=== PATIENT | female | born 1995 | race Caucasian/White ===

== ENCOUNTER 2018-12-03 21:49 | Inpatient (IN) | payer BC, OTHER ==
[2018-12-03 22:21] LABS: #Eosinphils 0.3 thou/uL (0.0-0.7); #Lymphocytes 4.9 thou/uL (1.20-3.40); #Monocytes 0.9 thou/uL (0.11-0.59); #Neutrophils 6.3 thou/uL (1.40-6.50); %Basophils 0.4 % (0.0-1.0); %Eosinophils 2.3 % (0.0-10.0); %Lymphocytes 39.6 % (21.0-51.0); %Neutrophils 50.8 % (42.0-75.0); Hemoglobin 13.3 g/dL (12.0-16.0); Mean Corpuscular HGB CONC 32.7 g/dL (32.0-36.0); Mean Corpuscular Hemoglobin 26.7 pg (27.0-31.0); Mean Corpuscular Volume 81.6 fL (78.0-98.0); Mean Platelet Volume 7.2 fL (7.4-10.4); Platelet Count 382 thou/uL (130-400); Red Blood Cell (RBC) Count 4.99 mill/uL (4.20-5.40); White Blood Cell (WBC) Count 12.4 thou/uL (4.8-10.8)
[2018-12-03 22:28] LABS: INR-International Normal Ratio 1.1; PTT 33.4 SEC (22.9-36.1); Prothrombin Time 13.9 SEC (12.0-14.7)
[2018-12-03] MEDS ORDERED: Morphine 4 MG/ML VIAL ONE ×2 (22:38→23:59)
[2018-12-03] MEDS ORDERED: diphenhydrAMINE 50 MG/ML VIAL ONE (22:39)
[2018-12-03] MEDS ORDERED: Ondansetron PF 4 MG/2 ML Vial ONE (22:39)
[2018-12-03 22:41] LABS: ALT (SGPT) 28 U/L (8-55); AST (SGOT) 19 U/L (5-34); Albumin 4.4 g/dL (3.5-5.0); Alkaline Phosphatase 79 U/L (40-150); Anion Gap 16 mmol/L (10-20); BUN (Urea Nitrogen) 9 mg/dL (7.0-18.7); Bilirubin, Total 0.3 mg/dL (0.2-1.2); Calc. Creatinine Clearance 0 mL/min (70-130); Calcium 10.1 mg/dL (7.8-10.44); Carbon Dioxide 21 mmol/L (22-29); Chloride 107 mmol/L (98-107); Estimated GFR-MDRD Greater than 90; Globulin 3.3 g/dL (2.4-3.5); Glucose 87 mg/dL (70-105); Potassium 3.9 mmol/L (3.5-5.1); Protein, Total 7.7 g/dL (6.0-8.3); Sodium 140 mmol/L (136-145)
[2018-12-03] MEDS ORDERED: Adacel (T-DAP) 0.5 ML SYRINGE ONE (23:59)
[2018-12-04 00:39] LABS: Bilirubin Negative (Negative); Blood, Urine Negative (Negative); Clarity CLEAR (Clear); Glucose, Urine (Dipstick) Negative (Negative); Leukocyte Negative (Negative); Nitrite Negative (Negative); Protein, Urine (Dipstick) Negative (Neg-Trace); Specific Gravity, Urine 1.011 (1.002-1.036); Urobilinogen 0.2 mg/dL (0.2-1.0)
[2018-12-04 00:51] LABS: Pregnancy Test - Urine (BHCG) Negative (Negative); Pregu Control Background? CLEAR/WHITE (CLR/WHITE); Pregu Control Bar Appear? YES (CONTROL BAR); Specific Gravity 1.011 (1.002-1.036)
[2018-12-04] MEDS ORDERED: Ondansetron PF 4 MG/2 ML Vial ONE (02:40)
[2018-12-04] MEDS ORDERED: Crotalidae Polyvlnt Antivenin 4 GM in Sodium Chloride 0.9% 250 ML 250 ML IVPB SCH (02:45)
--- NOTE | 2018-12-04 03:24 | PDOC.FPRHP ---
- History of Present Illness Chief Complaint: snake bite History of Present Illness: 23 yo F presents for snake bite that happened around 9:15 PM. Patient reports she was in her yard with her dog, thought she stepped on a chain, and when she stepped off she felt the snake bite her but did not see it. She went inside and told her , and he brought her to the ED. She reports her has seen multiple copper heads at her house. She currently has RLE pain, swelling. Reports some nausea but has not vomited. In ED, margins were marked. Initially the bite was thought to be dry, but then the margins started spreading and crofab protocol was intiated. - Allergies/Adverse Reactions Allergies Allergy/AdvReac Type Severity Reaction Status Date / Time No Known Drug Allergies Allergy Verified 12/04/18 05:53 - Home Medications Medication Instructions Recorded Confirmed Type Desog-E.Estradiol/E.Estradiol 1 tab PO DAILY 12/04/18 12/04/18 History [Kariva 28 Day Tablet] - History PMHx: environmental allergies PSHx: tympanostomy tubes, tonsillectomy FHx: no heart disease, lung cancer in mGF Social: no t/a/d - Review of Systems General: denies: fever/chills, weight/appetite/sleep changes Eyes: denies: eye pain, vision changes ENT: denies: nasal congestion, rhinorrhea Respiratory: denies: cough, congestion, shortness of breath Cardiovascular: denies: chest pain, palpitation Gastrointestinal: reports: nausea. denies: vomiting, diarrhea, constipation, abdominal pain, GI bleeding Skin: reports: rashes (see HPI). denies: lesions Musculoskeletal: reports: pain, tenderness, swelling Neurological: reports: numbness (on RLE). denies: syncope, seizure, weakness Psychological: denies: anxiety, depression - Vital signs BP: 94/63 HR: 64 RR: 18 Tmax: 98.8 Pox: 100% on RA Wt: 113 kg - Physical Exam Constitutional: NAD, awake, alert and oriented HEENT: normocephalic and atraumatic, PERRLA, EOMI, conjunctiva clear, grossly normal hearing, MMM, oropharynx clear Neck: supple, trachea midline, no LAD Heart: RRR, normal S1/S2, no murmurs/rubs/gallops, pulses present, other (+ edema on RLE) Lungs: CTAB, no respiratory distress, good air movement, no rales/rhonchi, no wheezing Abdomen: soft, non-tender, bowel sounds present, no masses/distention Musculoskeletal: normal structure, normal tone Neurological: no focal deficit Skin: good turgor, capillary refill <2 seconds, other (swelling, erythema, warmth and tenderness over RLE. Margins marked. Two small benson over anterior ankle.) Heme/Lymphatic: no unusual bruising or bleeding, no petechia Psychiatric: normal mood and affect, good judgment and insight, intact recent and remote memory FMR H&P: Results - Labs Result Diagrams: 12/04/18 06:22 12/03/18 22:11 Lab results: WBC 12.4 thou/uL (4.8-10.8) H 12/03/18 22:11 Hgb 13.3 g/dL (12.0-16.0) 12/03/18 22:11 Hct 40.7 % (36.0-47.0) 12/03/18 22:11 MCV 81.6 fL (78.0-98.0) 12/03/18 22:11 Plt Count 382 thou/uL (130-400) 12/03/18 22:11 Neutrophils % 50.8 % (42.0-75.0) 12/03/18 22:11 Sodium 140 mmol/L (136-145) 12/03/18 22:11 Potassium 3.9 mmol/L (3.5-5.1) 12/03/18 22:11 Chloride 107 mmol/L (98-107) 12/03/18 22:11 Carbon Dioxide 21 mmol/L (22-29) L 12/03/18 22:11 BUN 9 mg/dL (7.0-18.7) 12/03/18 22:11 Creatinine 0.78 mg/dL (0.6-1.1) 12/03/18 22:11 Glucose 87 mg/dL (70-105) 12/03/18 22:11 Calcium 10.1 mg/dL (7.8-10.44) 12/03/18 22:11 Total Bilirubin 0.3 mg/dL (0.2-1.2) 12/03/18 22:11 AST 19 U/L (5-34) 12/03/18 22:11 ALT 28 U/L (8-55) 12/03/18 22:11 Alkaline Phosphatase 79 U/L (40-150) 12/03/18 22:11 Creatine Kinase 123 U/L (29-168) 12/03/18 22:31 Serum Total Protein 7.7 g/dL (6.0-8.3) 12/03/18 22:11 Albumin 4.4 g/dL (3.5-5.0) 12/03/18 22:11 Urine Ketones Negative mg/dL (Negative) 12/04/18 00:25 Urine Blood Negative (Negative) 12/04/18 00:25 Urine Nitrite Negative (Negative) 12/04/18 00:25 Ur Leukocyte Esterase Negative (Negative) 12/04/18 00:25 FMR H&P: A/P - Problem List (1) Snake bite Current Visit: Yes Status: Acute Code(s): W59.11XA - BITTEN BY NONVENOMOUS SNAKE, INITIAL ENCOUNTER - Plan Snake bite, likely Copper Head -Swelling, erythema, induration, tenderness over RLE; margins marked and increasing. -UA neg, UPT neg -CK, fibrinogen, CBC, CMP, PT/PTT/INR -Battery Plate Assembler brendan initiated, Repeat PT/PTT/INR, Plt, Fibrinogen 1 hr after infusion complete. -Margins unchanged 1 hr after infusion complete. Labs stable -Start maintenance crofrab -CK 123 -zofran for nausea -benadryl for itching -NS @ 150 ml/hr PCP: none, CC Code: Full Diet: Regular GI: famotidine DVT ppx: none FMR H&P: Upper Level - Pertinent history 23 yr old female with no PMH presents after snake bite around 2114 on 12/03 in her yard while letting the dogs out. Did not actually see the snake but thought may be copperhead bc they have seem some. She has had worsening of swelling and pain and was ultimately started on crofab in ER. Reports throbbing pain and hurts worse when trying to walk. - Pertinent findings General: NAD, alert and oriented x3 Neck: Supple. Full ROM. Heart/Cardiovascular System: RRR, Cap refill < 3 seconds, no rub, no murmur Lungs/Respiratory System: clear to auscultation bilaterally. No increased work of breathing. Room air. Abdomen/Gastro-Intestinal System: no abdominal tenderness, normal bowel sounds, no masses, no organomegaly Extremities: Warm extremities. Right lateral foot/ankle with swelling and bruising like appearance with hourly markings indicating progression. 2 pinpoint penetration site distal to right lateral ankle. Neuro: No gross deficits appreciated. CN 2-12 grossly intact Psychiatry: Awake, Alert and cooperative with exam Skin: No lesions, rashes, or ulcers Musculoskeletal: Full ROM - Plan Date/Time: 12/04/18 2874 I, [Fidelia Guajardo], have evaluated this patient and agree with findings/plan as outlined by procurement internship resident. Pertinent changes/additions are listed here. venemous snake bite -patient on snake bite protocol. -initial labs with elevated fibrinogen -monitor CBC, PT/PTT, fibrinogen 1 hr following initial crofab. -if controlled, start maintenance crofab. -pain control with morphine -no NSAIDs or anticoagulation Addendum - Attending - Attending Attestation Date/Time: 12/04/18 1029 I personally evaluated the patient and discussed the management with Dr. Annalisa Coyne I agree with the History, Examination, Assessment and Plan documented above with any addition or exceptions noted below. The patient was bitten by an unknown type of snake last night. She has started the snake bite protocol as her fibrinogen elevated. She has significant swelling and pain in the right ankle and foot. Pulses are palpable and she is able to move her toes though it is painful. Will continue giving crofab.
[2018-12-04] MEDS ORDERED: diphenhydrAMINE 50 MG/ML VIAL IVP PRN (04:23)
[2018-12-04] MEDS ORDERED: Ondansetron PF 4 MG/2 ML Vial IVP PRN (04:23)
[2018-12-04 05:52] VITALS: BMI 47.9
[2018-12-04] MEDS ORDERED: Acetaminophen 325 MG TAB PO PRN (05:55)
[2018-12-04] MEDS ORDERED: Acetaminophen 650 MG Suppository PR PRN (05:55)
[2018-12-04] MEDS: Sodium Chloride 0.9% 1,000 ML IV SCH ×2 (06:23→13:55)
[2018-12-04 06:35] LABS: Platelet Count 288 thou/uL (130-400)
[2018-12-04] MEDS: Morphine 4 MG/ML VIAL SLOW IVP PRN ×3 (06:36→21:33)
[2018-12-04 06:42] LABS: INR-International Normal Ratio 1.2; PTT 34.6 SEC (22.9-36.1); Prothrombin Time 14.8 SEC (12.0-14.7)
[2018-12-04] MEDS: Famotidine 20 MG TAB PO SCH ×2 (08:20→19:45)
[2018-12-04] MEDS: Crotalidae Polyvlnt Antivenin 2 GM in Sodium Chloride 0.9% 250 ML 250 ML IVPB SCH ×2 (14:49→19:45)
[2018-12-04] MEDS: Acetaminophen 500 MG TAB PO PRN (17:32)
[2018-12-05] MEDS: Crotalidae Polyvlnt Antivenin 2 GM in Sodium Chloride 0.9% 250 ML 250 ML IVPB SCH (01:32)
[2018-12-05] MEDS: Sodium Chloride 0.9% 1,000 ML IV SCH ×3 (01:36→16:55)
[2018-12-05 05:53] LABS: #Eosinphils 0.4 thou/uL (0.0-0.7); #Lymphocytes 2.5 thou/uL (1.20-3.40); #Monocytes 0.7 thou/uL (0.11-0.59); %Basophils 0.3 % (0.0-1.0); %Eosinophils 4.3 % (0.0-10.0); %Lymphocytes 29.1 % (21.0-51.0); %Monocytes 8.3 % (0.0-10.0); Hemoglobin 11.3 g/dL (12.0-16.0); Mean Corpuscular HGB CONC 32.6 g/dL (32.0-36.0); Mean Corpuscular Hemoglobin 26.8 pg (27.0-31.0); Mean Corpuscular Volume 82.2 fL (78.0-98.0); Mean Platelet Volume 7.4 fL (7.4-10.4); Platelet Count 274 thou/uL (130-400); White Blood Cell (WBC) Count 8.7 thou/uL (4.8-10.8)
--- NOTE | 2018-12-05 07:21 | PDOC.FM ---
- Subjective Subjective: reports continued foot pain and headache, otherwise no complaints, no fever, no chills. Pain well controlled when not moving foot. - Objective Vital Signs & Weight: Vital Signs (12 hours) Temp Pulse Resp BP Pulse Ox 12/05/18 04:00 98.2 F 79 20 116/58 L 98 12/04/18 20:14 98 12/04/18 19:56 97.8 F 63 16 115/60 98 Weight Admit Weight 118.796 kg Weight 118.796 kg I&O: 12/04/18 12/05/18 12/06/18 06:59 06:59 06:59 Intake Total 2280 Balance 2280 Result Diagrams: 12/05/18 05:30 12/03/18 22:11 Phys Exam - Physical Examination Constitutional: NAD HEENT: moist MMs, sclera anicteric Neck: supple, full ROM Respiratory: no wheezing, clear to auscultation bilateral Cardiovascular: RRR, no significant murmur Gastrointestinal: soft, non-tender Musculoskeletal: pulses present Neurological: normal sensation, moves all 4 limbs Psychiatric: normal affect, A&O x 3 Skin: no rash, normal turgor Deviation from normal: L foot- TTP, edema continues to retreat, normal sensation to toes Dx/Plan (1) Snake bite Code(s): W59.11XA - BITTEN BY NONVENOMOUS SNAKE, INITIAL ENCOUNTER Status: Acute - Plan Plan: Snake bite, unkown type likely venomous A- Pt now s/p snakebite protocol and completed course of crofab. Overall clinically stable. Most recent labwork is normalized. Stable for DC. P- Will de-escalate pain regimen and likely DC home today PCP: none, f/u with [facility] Code: Full Addendum - Attending - Attending Attestation Date/Time: 12/05/18 1142 I personally evaluated the patient and discussed the management with Dr. Restrepo. I agree with the History, Examination, Assessment and Plan documented above with any addition or exceptions noted below. Pt still has significant pain with any palpation of the right foot. There is increased bruising along dorsum of the foot. She can move her toes though it is painful. Her cap refill is the same as yesterday. Will try po pain meds.
[2018-12-05] MEDS: Famotidine 20 MG TAB PO SCH ×2 (09:16→20:14)
[2018-12-05] MEDS: traMADol HCl 50 MG TAB PO PRN ×3 (09:17→20:14)
[2018-12-05] MEDS: Acetaminophen 500 MG TAB PO PRN (20:14)
[2018-12-06] MEDS: Acetaminophen 500 MG TAB PO PRN ×2 (05:09→15:04)
[2018-12-06] MEDS: traMADol HCl 50 MG TAB PO PRN (05:09)
[2018-12-06 05:32] LABS: Mean Corpuscular Hemoglobin 26.8 pg (27.0-31.0); Mean Corpuscular Volume 82.4 fL (78.0-98.0); Red Blood Cell (RBC) Count 4.11 mill/uL (4.20-5.40); White Blood Cell (WBC) Count 8.9 thou/uL (4.8-10.8)
[2018-12-06 05:33] LABS: #Basophils 0.1 thou/uL (0.0-0.2); #Eosinphils 0.4 thou/uL (0.0-0.7); #Lymphocytes 3.7 thou/uL (1.20-3.40); #Monocytes 0.7 thou/uL (0.11-0.59); #Neutrophils 4.1 thou/uL (1.40-6.50); %Basophils 0.6 % (0.0-1.0); %Eosinophils 4.6 % (0.0-10.0); %Neutrophils 45.8 % (42.0-75.0); Mean Corpuscular HGB CONC 32.5 g/dL (32.0-36.0); Mean Platelet Volume 7.5 fL (7.4-10.4); Platelet Count 278 thou/uL (130-400)
[2018-12-06] MEDS ORDERED: Ibuprofen 600 MG TAB PO PRN (08:33)
--- NOTE | 2018-12-06 08:38 | PDOC.FM ---
- Subjective Subjective: Pain well controlled while laying still, pt reports she does not like the euphoric sensation when given tramadol. Otherwise no complaints. No sensory deficits in foot - Objective Vital Signs & Weight: Vital Signs (12 hours) Temp Pulse Resp BP Pulse Ox 12/06/18 03:05 97.5 F L 64 18 96/50 L 97 Weight Admit Weight 118.796 kg Weight 118.796 kg I&O: 12/05/18 12/06/18 12/07/18 06:59 06:59 06:59 Intake Total 2280 Balance 2280 Result Diagrams: 12/06/18 04:46 12/03/18 22:11 Phys Exam - Physical Examination Constitutional: NAD HEENT: moist MMs, sclera anicteric Neck: supple, full ROM Respiratory: no wheezing, clear to auscultation bilateral Cardiovascular: RRR, no significant murmur Gastrointestinal: soft, non-tender Musculoskeletal: pulses present Neurological: normal sensation, moves all 4 limbs Psychiatric: normal affect, A&O x 3 Skin: no rash Deviation from normal: edema in RLE improved, cap refill 1 second Dx/Plan (1) Snake bite Code(s): W59.11XA - BITTEN BY NONVENOMOUS SNAKE, INITIAL ENCOUNTER Status: Acute - Plan Plan: Snake bite, unkown type likely venomous A- Improved with Ice. Pt now s/p snakebite protocol and completed course of crofab. Overall clinically stable. Most recent labwork is normalized. Stable for DC. P- Will de-escalate pain regimen to ibuprofen and tylenol and likely DC home today PCP: none, f/u with [facility] Code: Full Addendum - Attending - Attending Attestation Date/Time: 12/06/18 0626 I personally evaluated the patient and discussed the management with Dr. Restrepo. I agree with the History, Examination, Assessment and Plan documented above with any addition or exceptions noted below. The patient was counseled extensively on expected course for the snake bite. We are adjusting her medications to tylenol and ibuprofen and she will be able to go home. We will give her an order for a walker.
[2018-12-06] MEDS ORDERED: Ibuprofen 800 MG TAB PO SCH (08:45)
[2018-12-06 09:05] VITALS: BP 113/60; TEMP 98.3
[2018-12-06] MEDS: Famotidine 20 MG TAB PO SCH (11:44)
== END 2018-12-06 15:30 | disposition home or self-care (01) | DRG 918 ==
LOC: ERS 21:49 → 2NO 12-04 04:18
PROVIDERS: ADMIT Family Medicine; ATTEND Family Medicine
DX: T63.001A Toxic effect of unspecified snake venom, accidental (unintentional), initial encounter (principal); Y92.017 Garden or yard in single-family (private) house as the place of occurrence of the external cause
CPT/HCPCS: 36415; 80053; 81003; 81025; 82550; 85025; 85049; 85384; 85610; 85730; 86850; 86900; 86901; 90471; 90715; 94760; 96361; 96365; 96375; 96376; J0840; J1200; J2270; J2405; J7050